=== PATIENT | male | born 1980 | race Caucasian/White ===

== ENCOUNTER 2017-12-27 12:17 | Emergency (ER) | payer BC ==
[~2017-12-27] VITALS: Ht 175.3 cm; Wt 97.0 kg
[2017-12-27 12:18] VITALS: BP 149/77; PULSE 72; RESP 16; TEMP 98.1; O2SAT 98
--- NOTE | 2017-12-27 12:36 | PD ---
HPI Chief Complaint: Foreign Body Time Seen by Provider: 12:32 Travel History International Travel<30 days: No Contact w/Intl Traveler<30days: No Traveled to known affect area: No History of Present Illness HPI 37-year-old male presents for evaluation of puncture wounds/foreign body to the right forearm. He reports that yesterday he was gardening when he sustained a puncture wound from the floor to the right forearm. He feels certain that a piece of the thorn broke off underneath his skin and he has pain and foreign body sensation today. Pain is mild, throbbing, aggravated by palpation. Last tetanus vaccination unknown. Denies any numbness tingling or weakness. No other complaints. PFSH Social History Alcohol Use: Yes Tobacco Use: No Allergies-Medications (Allergen,Severity, Reaction): Coded Allergies: No Known Allergies (Unverified , 12/27/17) Reported Meds & Prescriptions Reported Meds & Active Scripts Active Keflex (Cephalexin) 500 Mg Capsule 500 Mg PO Q8H 7 Days Review of Systems General / Constitutional: No: Fever, Chills Skin: Positive Other (puncture wound, foreign body sensation, pain) Physical Exam Narrative GENERAL: Well-nourished male in no acute distress SKIN: Warm and dry. There is a puncture wound on the right forearm with some associated dried blood and mild soft tissue swelling. There is no palpable foreign body. CARDIOVASCULAR: Regular rate and rhythm. No murmur appreciated. RESPIRATORY: No accessory muscle use. Clear to auscultation. Breath sounds equal bilaterally. MUSCULOSKELETAL: Skin as noted above. No obvious bony deformity. Distal sensation, range of motion in the right forearm and hand preserved. NEUROLOGICAL: Awake and alert. No obvious cranial nerve deficits. Motor grossly within normal limits. Normal speech. Data Data Last Documented VS Vital Signs Date Time Temp Pulse Resp B/P (MAP) Pulse Ox O2 Delivery O2 Flow Rate FiO2 12/27/17 12:18 98.1 72 16 149/77 (101) 98 Room Air Orders Orders Lidocai-Epi 1%-1:100,000 Inj (Xylocaine- (12/27/17 12:45) Tetanus/Diphtheria Tox Adult (Tetanus/Di (12/27/17 12:45) Lidocai-Epi 1%-1:100,000 Inj (Xylocaine- (12/27/17 12:45) Forearm (2vws) (12/27/17 ) Ed Discharge Order (12/27/17 13:58) [facility] Medical Decision Making Medical Screen Exam Complete: Yes Emergency Medical Condition: Yes Medical Record Reviewed: Yes Differential Diagnosis Retained foreign body, puncture wound, cellulitis Narrative Course I discussed with the patient the risks and benefits of attempting foreign body removal and he has verbally consented to foreign body removal attempt. An x- ray will be obtained. Tetanus status updated. X-ray imaging reveals soft tissue swelling with no radiopaque foreign body. Foreign body removal was unsuccessful. The wound was thoroughly irrigated and then sutured closed. The patient will be referred to hand specialty for outpatient follow-up. He will be started on Keflex. Procedures Procedure Narrative Attempted foreign body removal: The puncture wound was prepped with Betadine. The area was anesthetized 1% lidocaine with epinephrine. A 1 cm linear incision was made through the skin and subcutaneous tissue. The wound was thoroughly irrigated and explored with forceps with no evidence of foreign body. The area was then irrigated and the wound was closed with 3 simple interrupted sutures of 5-0 prolene. Patient tolerated procedure well. Diagnosis Primary Impression: Puncture wound Referrals: Dean Rousseau MD Additional Instructions: Follow-up with a hand specialist such as Dr. Rousseau in the next week, call his office to make an appointment. Wash the area daily with soap and water and apply antibiotic cream. Take the antibiotics as prescribed. Return for any emergent medical conditions. Med/Other Pt SpecificInfo: Prescription(s) given Scripts Cephalexin (Keflex) 500 Mg Capsule 500 MG PO Q8H for Infection for 7 Days, #21 CAP 0 Refills Prov: Orquidea Littlejohn MD 12/27/17 Disposition: 01 DISCHARGE HOME Condition: Stable [place] Dec 27, 2017 12:36
[2017-12-27] MEDS ORDERED: TETANUS/DIPHTHERIA TOXOID ADULT 0.5 ML VIAL IM ONE (12:45)
[2017-12-27] MEDS ORDERED: LIDOCAINE 1%/EPINEPHrine 1:100,000 SOLN 50 ML VIAL INFIL ONE (12:45)
[2017-12-27] MEDS ORDERED: LIDOCAINE 1%/EPINEPHrine 1:100,000 SOLN 20 ML VIAL INFIL ONE (12:45)
[2017-12-27] MEDS ORDERED: CEPH-460 PO (13:44)
--- NOTE | 2017-12-27 13:56 | RADRPT ---
EXAM DATE/TIME: 12/27/2017 13:03 [facility] COMPARISON: No previous studies available for comparison. INDICATIONS : Evaluate for foreign body, palm tree thorn in arm. MEDICAL HISTORY : None. SURGICAL HISTORY : None. ENCOUNTER: Initial ACUITY: 2 days PAIN SCORE: 7/10 LOCATION: Right middle forearm FINDINGS: 2 views of the right forearm reveal soft tissue swelling involving the dorsal aspects of the proximal forearm. No radiopaque foreign body observed. No air appreciated within the soft tissues. No fractur e or dislocation. No cortical destruction. CONCLUSION: Soft tissue swelling. Jose A Ash Jr., MD on December 27, 2017 at 13:52 Board Certified Radiologist. This report was verified electronically.
== END 2017-12-27 14:24 | disposition home or self-care (01) ==
LOC: NEPK 12:17
DX: S51.831A Puncture wound without foreign body of right forearm, initial encounter (principal); W60.XXXA Contact with nonvenomous plant thorns and spines and sharp leaves, initial encounter; Y93.H2 Activity, gardening and landscaping; Y92.007 Garden or yard of unspecified non-institutional (private) residence as the place of occurrence of the external cause; Z23 Encounter for immunization
CPT/HCPCS: 10120; 73090; 90471; 90714